=== PATIENT | female | born 1985 | race Caucasian/White ===

== ENCOUNTER 2016-11-29 00:34 | Emergency (ER) | payer MEDICAID ==
[2016-11-29 00:41] VITALS: BP 122/79
[2016-11-29] MEDS ORDERED: TRAMADOL HCL 50 MG TABLET PO ONE (00:56)
--- NOTE | 2016-11-29 00:59 | ER Document Report ---
ED General - General Chief Complaint: Toothache Stated Complaint: TOOTHACHE Time Seen by Provider: 11/29/16 00:49 Notes: Patient is a pleasant 31-year-old female who presents with complaints of tooth pain. She had 3 fillings placed her her right lower molar and premolar. She says it turned 1 tooth is hurting and it is gradually get worse. She said no facial swelling. No difficulty breathing. No difficulty swallowing. No fevers. She did call her dentist and she has appointment on Monday but says tonight the pain became intractable and therefore came to the ER. She does have a history of an allergy to hydrocodone. She is hydrocodone can cause some swelling and itching. She denies allergies to any of the pain medicines that she is aware of. She denies history of seizures. She has no other complaints at this time. TRAVEL OUTSIDE OF THE [place] IN LAST 30 DAYS: No - Related Data Allergies/Adverse Reactions: metoclopramide HCl [From Reglan] Allergy (Severe, Verified 11/29/16 00:41) THROAT SWELLS/HARD TO BREATHE hydrocodone Adverse Reaction (Verified 11/29/16 00:41) Dizziness Past Medical History - Social History Smoking Status: Unknown if Ever Smoked Frequency of alcohol use: None Drug Abuse: None Family History: Reviewed & Not Pertinent Patient has suicidal ideation: No Patient has homicidal ideation: No - Past Medical History Cardiac Medical History: Denies: Hx Heart Attack, Hx Hypertension Pulmonary Medical History: Reports: Hx Asthma - ALBUTERAL Neurological Medical History: Reports: Hx Migraine. Denies: Hx Cerebrovascular Accident, Hx Seizures Renal/ Medical History: Reports: Hx Ovarian Cysts. Denies: Hx Peritoneal Dialysis GI Medical History: Denies: Hx Hepatitis, Hx Hiatal Hernia, Hx Ulcer Psychiatric Medical History: Reports: Hx Anxiety, Hx Depression Infectious Medical History: Denies: Hx Hepatitis Past Surgical History: Reports: Hx Appendectomy, Hx Cholecystectomy, Hx Genitourinary Surgery - labia laser surgery, Hx Oral Surgery - [place] Teeth, Hx Tubal Ligation. Denies: Hx Hysterectomy, Hx Mastectomy, Hx Open Heart Surgery, Hx Pacemaker - Immunizations Hx Diphtheria, Pertussis, Tetanus Vaccination: Yes - unknown Review of Systems - Review of Systems Notes: My Normal Review Basic REVIEW OF SYSTEMS: CONSTITUTIONAL : Denies fever, chills, or sweats. Denies recent illness. EENT: Toothache RESPIRATORY: Denies cough, cold, or chest congestion. Denies shortness of breath, difficulty breathing, or wheezing. GASTROINTESTINAL: Denies abdominal pain. Denies nausea, vomiting, or diarrhea. Denies constipation. Last BM: : MUSCULOSKELETAL: Denies neck or back pain or joint pain or swelling. SKIN: Denies rash or skin lesions. ALL OTHER SYSTEMS REVIEWED AND NEGATIVE. Physical Exam - Vital signs Vitals: Temp Pulse Resp BP Pulse Ox 97.4 F 76 20 122/79 98 11/29/16 00:38 11/29/16 00:38 11/29/16 00:38 11/29/16 00:38 11/29/16 00:38 - Notes Notes: General Appearance: Well nourished, alert, cooperative, no acute distress, moderate obvious discomfort. Patient is tearful. Vitals: reviewed, See vital signs table. Head: no swelling or tenderness to the head Eyes: PERRL, EOMI, Conjuctiva clear Mouth: No decreasd moisture. Patient has no redness or swelling on the teeth. No fractured teeth. No swelling of the face. No gingival inflammation. Throat: No tonsillar inflammation, No airway obstruction, No lymphadenopathy Neck: Supple, no neck tenderness Skin: warm, dry, appropriate color, no rash Neuro: speech clear, oriented x 3, normal affect, responds appropriately to questions. Course - Vital Signs Vital signs: Temp Pulse Resp BP Pulse Ox 97.4 F 76 20 122/79 98 11/29/16 00:38 11/29/16 00:38 11/29/16 00:38 11/29/16 00:38 11/29/16 00:38 - Transfer of Care Notes: 11/29/16 01:14 Patient is in obvious pain. She's tearful. I did look up a narcotic database and she has no history of any prescription narcotics in the last 6 months. She does have a history of a previous allergic reaction to hydrocodone. She says this makes her swell some as well as itch. She's never had Ultram. I will prescribe Ultram. I will give her the first dose here. I informed her if she has any reaction type symptoms to the Ultram she must return to ER medially. If she has no reaction to Ultram than she can fill the prescription so she can use as pain control. She has a follow-up appointment with her dentist on Monday. She's encouraged return to ER shows facial swelling, difficulty breathing, fevers, or feels unwell. Dictation of this chart was performed using voice recognition software; therefore, there may be some unintended grammatical errors. Discharge - Discharge Clinical Impression: Toothache Condition: Good Disposition: HOME, SELF-CARE Instructions: Oral Narcotic Medication ([facility]) Additional Instructions: Please follow up with your dentist on Monday as scheduled. Do not drive when taking the medication. Please return to the ER immediately if you have worsening pain, facial swelling, fevers, or difficulty breathing. Prescriptions: Tramadol HCl [Ultram 50 mg Tablet] 50 mg PO Q6HP PRN #14 tablet PRN Reason: Forms: Return to Work
== END 2016-11-29 01:16 | disposition home or self-care (01) ==
LOC: ER 00:34
DX: K08.9 Disorder of teeth and supporting structures, unspecified (principal); Z88.6 Allergy status to analgesic agent; Z90.49 Acquired absence of other specified parts of digestive tract; Z98.51 Tubal ligation status
CPT/HCPCS: 99282

== ENCOUNTER 2017-10-08 07:36 | Emergency (ER) | payer SELFPAY ==
--- NOTE | 2017-10-08 08:32 | ER Document Report ---
HPI - HPI Patient complains to provider of: fever, sore throat Onset: Last week Onset/Duration: Gradual Quality of pain: Achy Severity: Moderate Pain Level: 3 Context: Daughter was diagnosed with strep last week. Patient complains of fever, sore throat, and headache. Associated Symptoms: Nonproductive cough, Fever, Headache, Sore throat Exacerbated by: Denies Relieved by: Denies Similar symptoms previously: Yes Recently seen / treated by doctor: No - ROS ROS below otherwise negative: Yes Systems Reviewed and Negative: Yes All other systems reviewed and negative - CONSTITUTIONAL Constitutional: REPORTS: Fever, Chills - EENT EENT: REPORTS: Sore Throat - NEURO Neurology: REPORTS: Headache - CARDIOVASCULAR Cardiovascular: DENIES: Chest pain - RESPIRATORY Respiratory: DENIES: Trouble Breathing - REPRODUCTIVE Reproductive: DENIES: : - MUSCULOSKELETAL Notes: Patient reports body aches - DERM Skin Color: Normal, [place] Skin Problems: None Past Medical History - General Information source: Patient - Social History Smoking Status: Current Every Day Smoker Cigarette use (# per day): Yes Frequency of alcohol use: Occasional Drug Abuse: None Family History: Reviewed & Not Pertinent Patient has suicidal ideation: No Patient has homicidal ideation: No Pulmonary Medical History: Reports: Hx Asthma - ALBUTERAL Neurological Medical History: Reports: Hx Migraine Renal/ Medical History: Reports: Hx Ovarian Cysts Psychiatric Medical History: Reports: Hx Anxiety, Hx Depression Past Surgical History: Reports: Hx Appendectomy, Hx Cholecystectomy, Hx Genitourinary Surgery - labia laser surgery, Hx Oral Surgery - [place] Teeth, Hx Tubal Ligation - Immunizations Hx Diphtheria, Pertussis, Tetanus Vaccination: Yes - unknown Vertical Provider Document - CONSTITUTIONAL Agree With Documented VS: Yes Exam Limitations: No Limitations General Appearance: WD/WN, No Apparent Distress - INFECTION CONTROL TRAVEL OUTSIDE OF THE [place] IN LAST 30 DAYS: No - HEENT HEENT: Atraumatic, Normocephalic, Pharyngeal Erythema Notes: Ears normal, nose normal - NECK Neck: Lymphadenopathy-Left, Lymphadenopathy-Right - RESPIRATORY Respiratory: Breath Sounds Normal, No Respiratory Distress O2 Sat by Pulse Oximetry: 97 - CARDIOVASCULAR Cardiovascular: Regular Rate, Regular Rhythm - GI/ABDOMEN Gastrointestinal: Abdomen Soft - MUSCULOSKELETAL/EXTREMETIES Musculoskeletal/Extremeties: MAEW - NEURO Level of Consciousness: Awake, Alert, Appropriate - DERM Integumentary: Warm, Dry, No Rash Course - Vital Signs Vital signs: Temp Pulse Resp BP Pulse Ox 98.3 F 88 16 121/82 97 10/08/17 07:48 10/08/17 07:48 10/08/17 07:48 10/08/17 07:48 10/08/17 07:48 Discharge - Discharge Clinical Impression: Strep throat exposure Pharyngitis Qualifiers: Pharyngitis/tonsillitis etiology: unspecified etiology Qualified Code(s): J02.9 - Acute pharyngitis, unspecified Condition: Good Disposition: HOME, SELF-CARE Instructions: Strep Throat ([facility]) Additional Instructions: Take all antibiotics as prescribed Tylenol or Motrin as needed for body aches and fever replace your toothbrush In 2 days [id number] cough cold medications as needed Follow-up with your doctor next week or return if symptoms worsen. Prescriptions: Amoxicillin 1 tab PO TID #30 tab Forms: Return to Work
[2017-10-08 09:00] VITALS: BP 108/61
== END 2017-10-08 08:50 | disposition home or self-care (01) ==
LOC: ER 07:36
DX: J02.9 Acute pharyngitis, unspecified (principal); R59.0 Localized enlarged lymph nodes; Z20.818 Contact with and (suspected) exposure to other bacterial communicable diseases; R51 Headache; R50.9 Fever, unspecified; J45.909 Unspecified asthma, uncomplicated; F17.210 Nicotine dependence, cigarettes, uncomplicated
CPT/HCPCS: 99282

== ENCOUNTER 2019-12-28 15:24 | Emergency (ER) | payer MEDICAID ==
[2019-12-28 15:38] VITALS: BP 121/85
--- NOTE | 2019-12-28 16:10 | ER Document Report ---
ED Oral Problem - General Chief Complaint: Toothache Stated Complaint: MOUTH PAIN Time Seen by Provider: 12/28/19 16:07 Mode of Arrival: Ambulatory Notes: This 34-year-old female presented to the emergency room today stating she had dental infections to many of her lower teeth. Which is been ongoing for a period of 2 to 3 weeks. [facility] However is concerned that if it is infected when she gets and she will not build to have been cared for. TRAVEL OUTSIDE OF THE [place] IN LAST 30 DAYS: No - HPI Patient complains to provider of: Toothache Onset: Just prior to arrival Quality of pain: Achy Pain Level: 3 - Related Data Allergies/Adverse Reactions: metoclopramide HCl [From Reglan] Allergy (Severe, Verified 12/28/19 16:02) THROAT SWELLS/HARD TO BREATHE hydrocodone Adverse Reaction (Verified 12/28/19 16:02) Dizziness Past Medical History - General Information source: Patient - Social History Smoking Status: Current Every Day Smoker Chew tobacco use (# tins/day): No Frequency of alcohol use: None Drug Abuse: None Family History: Reviewed & Not Pertinent Patient has homicidal ideation: No - Past Medical History Cardiac Medical History: Denies: Hx Heart Attack, Hx Hypertension Pulmonary Medical History: Reports: Hx Asthma - ALBUTERAL Neurological Medical History: Reports: Hx Migraine. Denies: Hx Seizures Renal/ Medical History: Reports: Hx Ovarian Cysts. Denies: Hx Peritoneal Dialysis GI Medical History: Denies: Hx Hiatal Hernia, Hx Ulcer Psychiatric Medical History: Reports: Hx Anxiety, Hx Depression Past Surgical History: Reports: Hx Appendectomy, Hx Cholecystectomy, Hx Genitourinary Surgery - labia laser surgery, Hx Oral Surgery - [place] Teeth, Hx Tubal Ligation. Denies: Hx Hysterectomy, Hx Mastectomy, Hx Open Heart Surgery - Immunizations Hx Diphtheria, Pertussis, Tetanus Vaccination: Yes - unknown Review of Systems - Review of Systems Constitutional: No symptoms reported EENT: No symptoms reported Cardiovascular: No symptoms reported Respiratory: No symptoms reported Gastrointestinal: No symptoms reported Genitourinary: No symptoms reported Female Genitourinary: No symptoms reported Musculoskeletal: No symptoms reported Skin: No symptoms reported Hematologic/Lymphatic: No symptoms reported Neurological/Psychological: No symptoms reported Physical Exam - Vital signs Vitals: Temp Pulse Resp BP Pulse Ox 98.5 F 87 14 121/85 99 12/28/19 15:37 12/28/19 15:37 12/28/19 15:37 12/28/19 15:37 12/28/19 15:37 Interpretation: Normal - General General appearance: Appears well, Alert - HEENT Head: Normocephalic, Atraumatic Eyes: Normal Pupils: PERRL - Respiratory Respiratory status: No respiratory distress Chest status: Nontender Breath sounds: Normal Chest palpation: Normal - Cardiovascular Rhythm: Regular Heart sounds: Normal auscultation Murmur: No - Abdominal Inspection: Normal Distension: No distension Bowel sounds: Normal Tenderness: Nontender Organomegaly: No organomegaly - Back Back: Normal, Nontender - Extremities General upper extremity: Normal inspection, Nontender, Normal color, Normal ROM, Normal temperature General lower extremity: Normal inspection, Nontender, Normal color, Normal ROM, Normal temperature, Normal weight bearing. No: Gerardo's sign - Neurological Neuro grossly intact: Yes Cognition: Normal Orientation: AAOx4 [place] Coma Scale Eye Opening: Spontaneous [place] Coma Scale Verbal: Oriented [place] Coma Scale Motor: Obeys Commands [place] Coma Scale Total: 15 Speech: Normal Motor strength normal: LUE, RUE, LLE, RLE Sensory: Normal - Psychological Associated symptoms: Normal affect, Normal mood - Skin Skin Temperature: Warm Skin Moisture: Dry Skin Color: Normal Course - Re-evaluation Re-evalutation: 12/28/19 16:08 Severe dentalgia to lower gumline. Patient is trying to get into the [facility] she has no abscess she has no difficulty swallowing no difficulty breathing. - Vital Signs Vital signs: Temp Pulse Resp BP Pulse Ox 98.5 F 87 14 121/85 99 12/28/19 16:03 12/28/19 15:37 12/28/19 15:37 12/28/19 15:37 12/28/19 15:37 Discharge - Discharge Clinical Impression: Dentalgia Disposition: HOME, SELF-CARE Instructions: [facility], Penicillin V K ([facility]), Toothache ([facility]) Additional Instructions: Salt water gargles 4-5 times a day. Frequent brushing. Increase fluid intake rest. Must follow-up with [facility]. Return to the emergency room for any change worsening condition. Prescriptions: Tramadol HCl [Ultram 50 mg Tablet] 50 mg PO Q4HP PRN #60 tab PRN Reason: Penicillin V Potassium [Penicillin Vk 500 mg Tablet] 500 mg PO BID #20 tablet
== END 2019-12-28 16:12 | disposition home or self-care (01) ==
LOC: ER 15:24
DX: K08.89 Other specified disorders of teeth and supporting structures (principal); Z88.8 Allergy status to other drugs, medicaments and biological substances; F17.200 Nicotine dependence, unspecified, uncomplicated; J45.909 Unspecified asthma, uncomplicated
CPT/HCPCS: 99282